=== PATIENT | male | born 1960 | race Caucasian/White ===

== ENCOUNTER 2019-05-02 10:12 | Day surgery (SDC) | payer OTHER ==
[~2019-05-02] VITALS: Ht 160 cm; Wt 77.1 kg
[2019-05-02] MEDS ORDERED: BUPIVACAINE /EPINEPHRINE/PF 0.5% 30 ML VIAL INJ ONE (13:20)
[2019-05-02] MEDS ORDERED: SEVOFLURANE 15 MIN GAS INH ONE (13:20)
[2019-05-02] MEDS ORDERED: fentaNYL CITRATE/PF 100 MCG/2 ML AMP IVP ONE (13:20)
[2019-05-02] MEDS ORDERED: PHENYLEPHRINE HCL 10 MG/ML VIAL (NEOSYNEPHRINE) IV ONE (13:20)
[2019-05-02] MEDS ORDERED: ROCURONIUM BROMIDE 10 MG/ML (ZEMURON) IV ONE (13:20)
[2019-05-02] MEDS ORDERED: ONDANSETRON HCL 4 MG/2 ML VIAL IVP ONE (13:20)
[2019-05-02] MEDS ORDERED: PROPOFOL 200MG/ 20ML VIAL (DIPRIVAN) IV ONE (13:20)
[2019-05-02] MEDS ORDERED: NS IRRIG SOLN 1000 ML IR ONE (13:20)
[2019-05-02] MEDS ORDERED: ATROPINE SULFATE 0.4 MG/ML VIAL IVP ONE (13:20)
[2019-05-02] MEDS ORDERED: MIDAZOLAM HCL 5 MG/5 ML VIAL IVP ONE (13:20)
[2019-05-02] MEDS ORDERED: LR 1,000 ML IV.SOLN IV ONE (13:20)
[2019-05-02] MEDS ORDERED: HYDROcodone/ACETAMIN 7.5-325 MG TAB PO ONE (14:45)
[2019-05-02 15:20] VITALS: BP_SYST 112
[2019-05-02] MEDS ORDERED: HYDROcodone/ACETAMIN 7.5-325 MG TAB ONE (16:01)
== END 2019-05-02 17:20 | disposition home or self-care (01) ==
LOC: SDS 10:12 → SMU 10:12 → SDS 17:20
PROVIDERS: ATTEND Surgery
DX: K42.0 Umbilical hernia with obstruction, without gangrene (principal); K66.0 Peritoneal adhesions (postprocedural) (postinfection); E66.3 Overweight; M19.011 Primary osteoarthritis, right shoulder; F41.9 Anxiety disorder, unspecified; Z98.890 Other specified postprocedural states; Z98.52 Vasectomy status; Z87.891 Personal history of nicotine dependence
CPT/HCPCS: 49587; 88302; C1781; J0461; J2250; J2370; J2405; J2704; J3010; J3490; J7120